=== PATIENT | female | born 1995 | race African-American/Black ===

== ENCOUNTER 2017-10-03 20:02 | Emergency (ER) | payer OTHER ==
[~2017-10-03] VITALS: Ht 162.6 cm; Wt 81.7 kg
[2017-10-03] MEDS ORDERED: TRAMADOL 50 MG50 MG PO (21:07)
[2017-10-03] MEDS ORDERED: NAPROSYN500 MG PO (21:07)
[2017-10-03 21:49] VITALS: BP 108/63
== END 2017-10-03 21:50 | disposition home or self-care (01) ==
LOC: M.ERS 20:02
DX: M25.512 Pain in left shoulder (principal); J45.909 Unspecified asthma, uncomplicated